=== PATIENT | male | born 1955 | race Caucasian/White ===

== ENCOUNTER 2022-06-18 17:22 | Inpatient (IN) | payer MEDICARE, SELFPAY ==
[2022-06-18] VITALS (21 sets, daily range): BP systolic 130–174; BP diastolic 79–96; PULSE 53–69; RESP 11–28; TEMP 36.4–36.6; O2SAT 95–100; BMI 35.4
--- NOTE | ~2022-06-18 | XR_ITS ---
EXAMINATION: XR chest 2V DATE: 06/18/2022 17:53 INDICATION: Chest pain. TECHNIQUE: Frontal and lateral views of the chest were obtained. COMPARISON: Chest 2 views 04/01/2019 FINDINGS: The chest demonstrates clear lungs without pneumonia, pleural effusion, or pneumothorax. Th e heart size is normal. IMPRESSION: 1. No acute cardiopulmonary disease. Reviewed, dictated and finalized at location A.
--- NOTE | 2022-06-18 17:24 | ECG_ITS ---
Measurements Intervals [place] Rate: 59 P: 32 VA: 192 QRS: -9 QRSD: 105 T: 0 QT: 407 QTc: 405 Interpretive Statements SINUS BRADYCARDIA CONSIDER INFERIOR INFARCT, AGE INDETERMINATE ABNORMAL ECG NO PREVIOUS ECG AVAILABLE FOR COMPARISON Electronically Signed On 06-18-2022 21:30:40 CDT by Toribio Leal D.O.
--- NOTE | 2022-06-18 17:59 | ED.CHESTPAIN ---
HPI - Chest Pain General Chief Complaint: Chest Pain Stated Complaint: chest pain Time Seen by Provider: 06/18/22 17:56 History of Present Illness HPI narrative: Patient is a 66-year-old male with a history of diabetes, hyperlipidemia, hypertension, GERD presenting with chest tightness. Patient states that he was cutting logs and using his chainsaw earlier today. States that while doing so he became short of breath but he thought it was because he has not done any outdoor work for a while. He then went inside and ate some food. Shortly after eating he developed substernal chest tightness. States that it is associated with belching. States that he checked his blood pressure at home and it was in the 150s over 90s which is much higher than it has been lately. States he was recently started on lisinopril and since then his blood pressures have been in the 110s to 120s. Patient states he has had chest tightness like this in the past and it was related to anxiety. He denies diaphoresis, lightheadedness, nausea or vomiting, palpitations. Denies headache, numbness or weakness, abdominal pain, diarrhea, leg swelling, back pain. Related Data Home Medications Medication Instructions Recorded Confirmed atorvastatin 40 mg tablet 40 mg PO DAILY 05/03/22 05/03/22 metformin 1,000 mg tablet 1,000 mg PO BID 05/03/22 05/03/22 metoprolol succinate 100 mg 100 mg PO BID 05/03/22 05/03/22 tablet,extended release 24 hr omeprazole 20 mg tablet,delayed 20 mg PO DAILY 05/03/22 05/03/22 release Allergies Allergy/AdvReac Type Severity Reaction Status Date / Time Sulfa (Sulfonamide Allergy Severe Hives Verified 06/18/22 18:21 Antibiotics) ibuprofen Allergy Unknown hives Verified 06/18/22 18:21 bacitracin [From Cortisporin] AdvReac Unknown Unknown Verified 06/18/22 18:21 hydrocodone AdvReac Unknown Unknown Verified 06/18/22 18:21 hydrocortisone AdvReac Unknown Unknown Verified 06/18/22 18:21 [From Cortisporin] neomycin [From Cortisporin] AdvReac Unknown Unknown Verified 06/18/22 18:21 polymyxin B AdvReac Unknown Unknown Verified 06/18/22 18:21 [From Cortisporin] Review of Systems Review of Systems: All systems reviewed & are unremarkable except as noted in HPI and below PMFSH Family History Family History Father Acute myocardial infarction Heart disease Hypertension Mother Acute myocardial infarction Diabetes mellitus Heart disease Hypertension Grandparent Acute myocardial infarction Heart disease Hypertension Grandparent Acute myocardial infarction Heart disease Sibling Asthma Diabetes mellitus Sibling Diabetes mellitus Social History Social History Smoking status: Never smoker Second hand tobacco smoke exposure: No Alcohol intake: current Alcohol use details: Occasionally Substance use: never Substance use type: does not use Gender identity (if verbalized by the patient): Male Sexual Orientation (if Verbalized by the Patient): Straight or Heterosexual Spiritual care concerns: No Agree to blood products: Yes Exam Narrative: GENERAL: Well-appearing, well-nourished, and in no acute distress. HEAD: Normocephalic, atraumatic. EYES: PERRLA and EOMI. ENT: Nares clear, no rhinorrhea or epistaxis. Mucous membranes moist. NECK: Supple. CHEST: Clear to auscultation. No respiratory distress. HEART: Regular rate and rhythm. No murmur heard. Normal peripheral pulses. ABDOMEN: Soft, nontender, nondistended, normal active bowel sounds. EXTREMITIES: Normal range of motion. No edema. SKIN: Warm, dry, no rash. NEURO: No focal deficits. Alert and oriented x3. PSYCH: Normal mood and affect. Course Vital Signs Vital signs: Vital Signs Temperature 97.9 F 06/18/22 17:31 Pulse Rate 58 L 06/18/22 17:31 Respiratory Rate 14 06/18/22 17:31 Blood Pressure 174/95 H 0
[2022-06-18] MEDS: BELLADONNA ALK/PHENOB ELIX 10 ML, MAG HYDROX/ALUMINUM HYD/SIMETH 30 ML, LIDOCAINE HCL 2... PO (18:22)
[2022-06-18 18:25] LABS: Basophils Absolute Auto 0.1 K/mm3 (0.0-0.1); Basophils Percent Auto 0.6 % (0.2-1.2); Eosinophils Absolute Auto 0.1 K/mm3 (0-0.3); Eosinophils Percent Auto 1.5 % (0-4.4); Hematocrit 44.8 % (42.0-52.0); Hemoglobin 14.9 g/dL (14.0-18.0); Immature Granulocyte Absolute 0.01 K/mm3 (0.00-0.031); Immature Granulocyte Percent A 0.1 % (0-0.5); Lymphocytes Absolute Auto 2.91 K/mm3 (0.9-3.2); Lymphocytes Percent Auto 36.3 % (18.3-44.2); Mean Corpuscular HGB Conc 33.3 g/dl (32-36); Mean Corpuscular Hemoglobin 29.7 pg (26-34); Mean Corpuscular Volume 89.4 fl (80-100); Mean Platelet Volume 10.5 fl (7.4-10.4); Monocytes Absolute Auto 0.8 K/mm3 (0.1-0.6); Neutrophils Absolute Auto 4.1 K/mm3 (1.3-6.7); Neutrophils Percent Auto 51.5 % (45.5-73.1); Platelet Count Result 227 k/mm3 (150-375); Red Blood Count 5.01 M/mm3 (4.6-6.20); Red Cell Distribution Width 12.9 % (11.5-14.5)
[2022-06-18 18:33] LABS: INR 0.9; Prothrombin Time 12.1 Seconds (11.1-14.7)
[2022-06-18 18:34] LABS: Alanine Aminotransferase 31 U/L (6-50); Albumin Level 4.5 g/dL (3.5-5.1); Alkaline Phosphatase 36 U/L (38-126); Anion Gap 10 mmol/L (8-16); Aspartate Amino Transferase 30 U/L (17-59); Bilirubin,Total 0.6 mg/dL (0.2-1.3); Blood Urea Nitrogen 17 mg/dL (9-20); Carbon Dioxide 30 mmol/L (22-30); Chloride 99 mmol/L (98-107); Estimated CRCL calculation 77 ml/min; Estimated Glomerular Filt Rate > 60; Glucose 160 mg/dL (65-110); Lipase 158 U/L (23-300); Partial Thromboplastin Time 29.9 SECONDS (22.3-36.8); Potassium 4.3 mmol/L (3.4-5.0); Sodium 139 mmol/L (137-145)
[2022-06-18 18:46] LABS: Troponin I < 0.012 ng/mL (0.000-0.034)
[2022-06-18 21:06] LABS: Troponin I 0.024 ng/mL (0.000-0.034)
[2022-06-18] MEDS: ASPIRIN 81 MG CHEWABLE TABLET 324 MG PO (21:28)
[2022-06-18 22:24] LABS: SARS-CoV-2 RNA PCR Negative
--- NOTE | 2022-06-18 23:28 | PM.IMHP ---
H&P: HPI History of Present Illness Date/Time: 06/18/22 22:10 Chief Complaint: Chest pain Narrative: 66-year-old male with past medical history of hypertension, hyperlipidemia, GERD and type 2 diabetes mellitus who presented to the ER with chest pain. The patient reports that for the last several days he has been having intermittent substernal chest pain that is pressure-like in nature. The pain is associated with belching. The pain is improved after belching. The pain was completely relieved in the ER after he received a GI cocktail. He also received a full-dose aspirin on arrival to the ER. He denies any nausea or vomiting. He has been having some associated shortness of breath. He has not had any cough or congestion. He states that he has been cutting firewood with a chain saw. He reports that when the pain occurs it usually takes about 30 minutes for it to resolve. He denies any orthopnea, lower extremity swelling or paroxysmal nocturnal dyspnea. He has not had any cough or congestion. He denies any fevers or chills. He has not had any nausea or vomiting. He denies any radiation of the chest pain. Patient reported that when he began having symptoms tonight he checked his blood pressure in his blood pressure was elevated to 158/97. He reports that when he started on lisinopril in May his blood pressures came down into the 110's/70's and have been well controlled until today. He works out with water aerobics for 5 days a week and does not usually have shortness of breath or pain with these activities. However, he states he may have had some pressure in his chest when exercising yesterday. He reports that his symptoms started on the . He has a yearly treadmill stress test as outpatient that is always been normal. He is scheduled to have a repeat treadmill stress test next month. Review of Systems Review of Systems: 12 systems were reviewed with pertinent positives and negatives per HPI. Except as documented in the HPI, all other systems were reviewed and are negative. [facility], LAT[facility] Past Medical History Medical History (Updated 06/19/22 @ 00:04 by Alta Bradford DO) Essential hypertension Gastro-esophageal reflux disease without esophagitis Mixed hyperlipidemia Surgical History Surgical History (Updated 06/18/22 @ 23:43 by Alta Bradford DO) History of tonsillectomy and adenoidectomy Family History Family History Father Acute myocardial infarction, Onset Age: 79 Heart disease Hypertension Mother Acute myocardial infarction, Onset Age: 66 Diabetes mellitus Heart disease Hypertension Grandparent Acute myocardial infarction Heart disease Hypertension Grandparent Acute myocardial infarction Heart disease Sibling Asthma Diabetes mellitus Sibling Diabetes mellitus Social History Social History (Updated 06/18/22 @ 23:45 by Alta Bradford DO) Social History: He has been for 33 years. He has 1 biological child and 3 stepchildren. He is a lifelong nonsmoker and drinks a glass a wine about 3 times a week. He denies any illicit substance use. He is a retired construction scheduler. Code status: Full code Surrogate decision maker: Smoking status: Never smoker Second hand tobacco smoke exposure: No Alcohol intake: current Alcohol use details: Occasionally Substance use: never Substance use type: does not use Gender identity (if verbalized by the patient): Male Sexual Orientation (if Verbalized by the Patient): Straight or Heterosexual Spiritual care concerns: No Agree to blood products: Yes Meds Home Medications and Allergies Home Medications Medication Instructions Recorded Confirmed Type atorvastatin 40 mg tablet 40 mg PO DAILY 05/03/22 06/18/22 History lisinopril 20 mg tablet 20 mg PO DAILY #90 tabs 05/03/22 06/18/22 Rx metformin 1,000 mg tablet 1,000 mg PO BID 08
[2022-06-19] VITALS (16 sets, daily range): BP systolic 123–141; BP diastolic 69–92; PULSE 48–82; RESP 18–20; TEMP 36.3–36.6; O2SAT 96–100; BMI 35.4
--- NOTE | 2022-06-19 00:28 | ADMGEN ---
This patient, Chris Oden Jr., was admitted to IMU Room 212-01. Patient/family oriented to hospital policies and general routines including ID bracelet, bed and alarms, visiting hours, pain management, procedures, bathroom and other care routines, personal items, smoking policy, room service/diet, and visiting hours. Information on how to activate the Rapid Response Team has been discussed. Patient/Family are encouraged to report perceived risks to care and to ask questions if they do not understand what they are told or what they should do.
[2022-06-19] MEDS: ENOXAPARIN 120 MG/0.8 ML SYRINGE 110 MG SUB-Q ×3 (01:45→20:46)
--- NOTE | 2022-06-19 05:00 | ECG_ITS ---
Measurements Intervals [place] Rate: 47 P: 32 MN: 186 QRS: 13 QRSD: 108 T: 58 QT: 439 QTc: 392 Interpretive Statements SINUS BRADYCARDIA ABNORMAL ECG COMPARED TO ECG 04/02/2019 00:40:23 HR HAS DECREASED Electronically Signed On 06-19-2022 10:07:01 CDT by Toribio Leal D.O.
[2022-06-19 05:27] LABS: Glucose Point of Care 152 mg/dl (65-105)
[2022-06-19 07:50] LABS: Glucose Point of Care 148 mg/dl (65-105)
--- NOTE | 2022-06-19 08:49 | PM.CNCAR ---
Assessment and Plan Assessment and plan (1) Chest pain: Code(s): R07.9 - Chest pain, unspecified Status: Acute Plan This is a 66-year-old man with hypertension and dyslipidemia who presents with intermittent chest pain. Setting of this pain is rather atypical for ischemia however the quality of the pain is concerning and he has had a modest troponin rise following admission. In this setting he should undergo a coronary angiogram. As he is stable this will be scheduled for Tuesday. Through the weekend I will keep him on guideline directed medical therapy including subcutaneous Lovenox. John Arita MD [facility] History of Present Illness History of Present Illness Consult date/time: 06/19/22 08:49 Reason For Visit: chest pain Narrative: This is a pleasant 66-year-old man with a history of hypertension who I am seeing at the request of the hospitalist with chest pain and evidence of acute coronary syndrome. He states that he has been having episodes of chest pain off and on for a couple of weeks. The symptom seems to be a low substernal pressure-like sensation that comes and goes in a nonexertional fashion. He noticed that the symptom seems to dissipate if he belches. He has not noticed that this to be an exertional symptom. Because of ongoing symptoms he finally came into the emergency room last evening as he had an episode that was a bit more persistent yesterday evening. His presentation EKG in the emergency room was normal and has remained so. He had a series of 4 troponin levels done following admission which have shown a modest rise from normal up to 0.9. He has been asymptomatic with no recurrences of this chest pain. I was notified in the middle of the night of his troponin levels and requested to see him in consultation today. 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 He does not have any sense of palpitations orthopnea PND or edema he has not suffered a syncopal episode. He states that because of his risk factors and family history his physician does perform stress tests on him occasionally which have been consistently negative. In addition to his hypertension and dyslipidemia both parents had coronary artery disease his mother having of a myocardial infarction in her 60s. Review of Systems Constitutional: Constitutional: Reports no additional constitutional complaints Eyes: Eyes: Reports no additional eye complaints ENT: Reports system reviewed and no additional complaints, except as documented Cardiovascular: Cardiovascular: Reports as per HPI Respiratory: Respiratory: Reports no additional respiratory complaints Gastrointestinal: Gastrointestinal: Reports no additional gastrointestinal complaints Musculoskeletal: Musculoskeletal: Reports no additional musculoskeletal complaints Integumentary/Breasts: Skin/Breast: Reports system reviewed and no additional complaints, except as docu Neurologic: Reports system reviewed and no additional complaints, except as documented Endocrine: Endocrine: Reports no additional endocrine complaints Hematologic/Lymphatic: Hematologic/Lymphatic: Reports no additional hematologic/lymphatic complaints Allergic/Immunologic: Allergic/Immunologic: Reports no additional allergic/immunologic complaints [facility] Past Medical History Medical History (Updated 06/19/22 @ 00:04 by Alta Bradford DO) Essential hypertension Gastro-esophageal reflux disease without esophagitis Mixed hyperlipidemia Surgical History Surgical History (Updated 06/18/22 @ 23:43 by Alta Bradford DO) History of tonsillectomy and adenoidectomy Family History Family History Father Acute myocardial infarction, Onset Age: 79 Heart disease Hypertension Mother Acute myocardial infarction, Onset Age: 66
--- NOTE | 2022-06-19 09:00 | PM.IMPN ---
Progress Note: A&P Assessment and Plan (1) Chest pain: Code(s): R07.9 - Chest pain, unspecified Status: Acute Assessment and Plan: With elevated troponin, appreciate Cardiology consultation, heart catheterization planned for Tuesday Monitor telemetry, trend troponins, continue aspirin, Lipitor, therapeutic Lovenox, metoprolol (2) Gastro-esophageal reflux disease without esophagitis: Code(s): K21.9 - Gastro-esophageal reflux disease without esophagitis Status: Acute Assessment and Plan: Continue PPI (3) Essential (primary) hypertension: Code(s): I10 - Essential (primary) hypertension Status: Acute Assessment and Plan: Controlled (4) Mixed hyperlipidemia: Code(s): E78.2 - Mixed hyperlipidemia Status: Acute Assessment and Plan: Continue statin (5) Type 2 diabetes mellitus without complications: Qualifiers: Diabetes mellitus prison insulin use: without prison use Qualified Code(s): E11.9 - Type 2 diabetes mellitus without complications Code(s): E11.9 - Type 2 diabetes mellitus without complications Status: Acute Assessment and Plan: Hold metformin, A1c was 6.3 last month, Accu-Cheks and sliding scale insulin ordered Plan DVT prophylaxis with Lovenox GI prophylaxis not indicated Code status full code Subjective Date/time seen: 06/19/22 09:00 Interval history: No overnight events noted. No chest pain or shortness of breath. No nausea, vomiting or diarrhea. No fevers or chills. Review of Systems Review of Systems: 12 point review of systems was assessed and was negative except as noted in the HPI Exam Narrative: General: No acute distress, alert and oriented per baseline HEENT: Atraumatic, normocephalic, mucous membranes moist CV: Regular rate and rhythm, S1, S2 Lungs: Clear to auscultation bilaterally, no rales or crackles noted, no wheezes, good air entry Abdomen: Soft, nontender, nondistended Extremities: Normal to inspection Skin: No rashes noted, no lesions or wounds seen Psych: Euthymic, normal affect Objective Data Vital Signs Vital Signs: Vital Signs - 24 hr 06/18/22 17:31 06/18/22 18:00 06/18/22 18:32 Temperature 97.9 F Pulse Rate 58 L 58 L 66 Respiratory Rate 14 28 H Blood Pressure 174/95 H 153/96 H Pulse Oximetry 100 100 Oxygen Delivery Room Air 06/18/22 19:02 06/18/22 19:03 06/18/22 19:24 Temperature Pulse Rate 60 58 L 61 Respiratory Rate 13 11 L 15 Blood Pressure 160/82 H Pulse Oximetry 97 98 96 Oxygen Delivery 06/18/22 19:30 06/18/22 19:45 06/18/22 20:13 Temperature Pulse Rate 62 61 56 L Respiratory Rate 16 12 18 Blood Pressure Pulse Oximetry 97 96 96 Oxygen Delivery 06/18/22 20:15 06/18/22 20:16 06/18/22 20:18 Temperature Pulse Rate 61 58 L 69 Respiratory Rate 18 21 H 16 Blood Pressure 147/79 H 143/86 H Pulse Oximetry 95 96 97 Oxygen Delivery 06/18/22 20:31 06/18/22 20:32 06/18/22 20:45 Temperature Pulse Rate 61 60 60 Respiratory Rate 13 13 17 Blood Pressure 130/94 H Pulse Oximetry 95 97 96 Oxygen Delivery 06/18/22 20:46 06/18/22 21:07 06/18/22 21:15 Temperature Pulse Rate 53 L 65 54 L Respiratory Rate 16 11 L 16 Blood Pressure 134/80 Pulse Oximetry 96 98 98 Oxygen Delivery 06/18/22 21:16 06/18/22 21:30 06/18/22 23:31 Temperature 97.6 F Pulse Rate 53 L 55 L 56 L Respiratory Rate 12 17 20 Blood Pressure 146/89 H 143/79 H Pulse Oximetry 99 99 98 Oxygen Delivery 06/19/22 00:00 06/18/22 23:50 06/19/22 03:42 Temperature Pulse Rate 48 L Respiratory Rate Blood Pressure Pulse Oximetry Oxygen Delivery Room Air Room Air 06/19/22 04:00 06/19/22 04:00 06/19/22 02:00 Temperature 97.4 F L Pulse Rate 57 L 48 L 49 L Respiratory Rate 20 Blood Pressure 136/69 Pulse Oximetry 100 Oxygen Delivery 06/19/22 05:42 06/19/22 07:57
[2022-06-19] MEDS: ASPIRIN 81 MG ENTERIC TABLET PO (09:11)
[2022-06-19] MEDS: lisinopriL 20 MG TABLET PO (09:12)
[2022-06-19] MEDS: METOPROLOL SUCCINATE EXT REL 100 MG TABCR PO ×2 (09:12→18:20)
[2022-06-19] MEDS: PANTOPRAZOLE 40 MG TABLET PO ×2 (09:12→20:41)
[2022-06-19] MEDS: ATORVASTATIN 40 MG TABLET PO (09:12)
[2022-06-19 11:07] LABS: Basophils Percent Auto 0.5 % (0.2-1.2); Eosinophils Absolute Auto 0.2 K/mm3 (0-0.3); Hematocrit 40.3 % (42.0-52.0); Hemoglobin 12.9 g/dL (14.0-18.0); Immature Granulocyte Absolute 0.01 K/mm3 (0.00-0.031); Immature Granulocyte Percent A 0.1 % (0-0.5); Lymphocytes Absolute Auto 3.04 K/mm3 (0.9-3.2); Lymphocytes Percent Auto 37.6 % (18.3-44.2); Mean Corpuscular Hemoglobin 29.2 pg (26-34); Mean Corpuscular Volume 91.2 fl (80-100); Mean Platelet Volume 11.6 fl (7.4-10.4); Monocytes Absolute Auto 0.7 K/mm3 (0.1-0.6); Monocytes Percent Auto 9.2 % (2.6-8.5); Neutrophils Absolute Auto 4.1 K/mm3 (1.3-6.7); Neutrophils Percent Auto 50.6 % (45.5-73.1); Platelet Count Result 206 k/mm3 (150-375); Red Blood Count 4.42 M/mm3 (4.6-6.20); Red Cell Distribution Width 13.2 % (11.5-14.5); White Blood Count 8.1 K/mm3 (4.5-10.0)
[2022-06-19 11:21] LABS: Anion Gap 12 mmol/L (8-16); Blood Urea Nitrogen 16 mg/dL (9-20); Calcium 8.9 mg/dL (8.4-10.2); Carbon Dioxide 27 mmol/L (22-30); Chloride 100 mmol/L (98-107); Estimated CRCL calculation 75 ml/min; Estimated Glomerular Filt Rate > 60; Glucose 139 mg/dL (65-110); Potassium 3.8 mmol/L (3.4-5.0); Sodium 139 mmol/L (137-145)
[2022-06-19 12:02] LABS: Glucose Point of Care 309 mg/dl (65-105)
[2022-06-19] MEDS: INSULIN ASPART (*BKC) 100 UNITS/ML SUB-Q (12:37)
[2022-06-19 17:05] LABS: Glucose Point of Care 126 mg/dl (65-105)
[2022-06-19 19:59] LABS: Glucose Point of Care 309 mg/dl (65-105)
[2022-06-20] VITALS (17 sets, daily range): BP systolic 118–137; BP diastolic 70–83; PULSE 51–76; RESP 12–20; TEMP 36.2–36.9; O2SAT 94–100
--- NOTE | 2022-06-20 02:52 | ECG_ITS ---
Measurements Intervals [place] Rate: 59 P: 32 CT: 200 QRS: 6 QRSD: 98 T: 70 QT: 410 QTc: 408 Interpretive Statements SINUS BRADYCARDIA CANNOT RULE OUT SEPTAL INFARCT, AGE INDETERMINATE BASELINE ARTIFACT- I, II, AVR ABNORMAL ECG COMPARED TO ECG 06/19/2022 04:21:30 HEART RATE HAS INCREASED CANNOT RULE OUT SEPTAL INFARCT, AGE INDETERMINATE NOW PRESENT Electronically Signed On 06-20-2022 8:02:32 CDT by Toribio Leal D.O.
[2022-06-20] MEDS: CALCIUM CARBONATE (TUMS) 500 MG (200 MG ELEMENTAL) PO (03:00)
[2022-06-20 05:30] LABS: Basophils Absolute Auto 0.1 K/mm3 (0.0-0.1); Basophils Percent Auto 0.7 % (0.2-1.2); Eosinophils Absolute Auto 0.2 K/mm3 (0-0.3); Eosinophils Percent Auto 2.3 % (0-4.4); Hematocrit 45.1 % (42.0-52.0); Hemoglobin 14.6 g/dL (14.0-18.0); Immature Granulocyte Absolute 0.03 K/mm3 (0.00-0.031); Immature Granulocyte Percent A 0.3 % (0-0.5); Lymphocytes Percent Auto 31.5 % (18.3-44.2); Mean Corpuscular HGB Conc 32.4 g/dl (32-36); Mean Corpuscular Hemoglobin 29.4 pg (26-34); Mean Corpuscular Volume 90.7 fl (80-100); Mean Platelet Volume 11.8 fl (7.4-10.4); Monocytes Absolute Auto 0.8 K/mm3 (0.1-0.6); Neutrophils Percent Auto 56.2 % (45.5-73.1); Platelet Count Result 184 k/mm3 (150-375); Red Blood Count 4.97 M/mm3 (4.6-6.20); White Blood Count 8.9 K/mm3 (4.5-10.0)
[2022-06-20 06:01] LABS: Alanine Aminotransferase 28 U/L (6-50); Albumin Level 4.3 g/dL (3.5-5.1); Alkaline Phosphatase 30 U/L (38-126); Anion Gap 13 mmol/L (8-16); Aspartate Amino Transferase 37 U/L (17-59); Bilirubin,Total 0.8 mg/dL (0.2-1.3); Blood Urea Nitrogen 13 mg/dL (9-20); Carbon Dioxide 24 mmol/L (22-30); Chloride 102 mmol/L (98-107); Estimated CRCL calculation 82 ml/min; Estimated Glomerular Filt Rate > 60; Glucose 158 mg/dL (65-110); Potassium 3.8 mmol/L (3.4-5.0); Sodium 139 mmol/L (137-145)
--- NOTE | 2022-06-20 07:30 | PM.PNCARD ---
Progress Note: A&P Assessment and Plan (1) Chest pain: Code(s): R07.9 - Chest pain, unspecified Status: Acute Plan 66-year-old man with hypertension non insulin-dependent diabetes and dyslipidemia presenting with symptoms compatible with acute coronary syndrome. He is stable clinically. He did have an episode of some self-limited chest discomfort in the middle of the night as mentioned above. Plans are to proceed with coronary angiography tomorrow. Will keep him on Lovenox until then. John Arita MD [facility] Subjective Date/time seen: Date of service: 06/20/22 07:30 Interval history: Follow-up visit in this 66-year-old man with: Evidence of acute coronary syndrome. Patient on guideline directed medical therapy and anticoagulated with Lovenox. He is comfortable this morning and offers no complaints. Apparently had an episode of some chest pressure at 2:00 a.m. in the morning that lasted for 15 or 20 minutes. ECG at that time looked benign. Exam Const: General: comfortable and no acute distress Other: Pleasant gentleman sleeping comfortably when I entered the room upon awakening feels well has no complaints. Questions answered about tomorrow's plans for angiography. HENMT: Mouth: Yes moist mucous membranes Eyes: Sclera: sclerae normal Pupils: Equal, round and reactive pupils present Neck: Neck: supple and no JVD Other: No carotid bruits Resp: Effort & Inspection: normal respiratory effort Auscultation: clear to auscultation bilaterally Cardio: Rate: regular rate Rhythm: regular rhythm GI: GI Palp: Yes Soft to palpation Auscultation: normal bowel sounds Skin: General skin exam: normal color Neuro: Other: Alert and oriented Extrem: General: normal to inspection Objective Data Vital Signs Vital Signs: Vital Signs - 24 hr 06/19/22 07:57 06/19/22 08:00 06/19/22 08:00 Temperature 36.6 C Pulse Rate 57 L 61 Respiratory Rate 20 Blood Pressure 123/78 Pulse Oximetry 98 Oxygen Delivery Room Air 06/19/22 10:00 06/19/22 12:15 06/19/22 12:00 Temperature 36.4 C Pulse Rate 69 68 82 Respiratory Rate 20 Blood Pressure 129/77 Pulse Oximetry 98 Oxygen Delivery 06/19/22 12:00 06/19/22 14:00 06/19/22 16:00 Temperature Pulse Rate 74 Respiratory Rate Blood Pressure Pulse Oximetry Oxygen Delivery Room Air Room Air 06/19/22 16:00 06/19/22 17:09 06/19/22 18:00 Temperature 36.6 C Pulse Rate 72 70 79 Respiratory Rate 18 Blood Pressure 141/92 H Pulse Oximetry 98 Oxygen Delivery 06/19/22 20:00 06/19/22 23:38 06/19/22 20:00 Temperature 36.3 C L 36.4 C L Pulse Rate 73 53 L 73 Respiratory Rate 20 20 20 Blood Pressure 132/82 136/80 Pulse Oximetry 96 97 96 Oxygen Delivery Room Air 06/20/22 00:00 06/19/22 20:00 06/19/22 22:00 Temperature Pulse Rate 53 L 71 56 L Respiratory Rate 20 Blood Pressure Pulse Oximetry 97 Oxygen Delivery Room Air 06/20/22 00:00 06/20/22 01:52 06/20/22 03:19 Temperature Pulse Rate 62 51 L 57 L Respiratory Rate 18 Blood Pressure Pulse Oximetry 97 Oxygen Delivery Room Air 06/20/22 03:19 06/20/22 04:00 06/20/22 05:41 Temperature 36.2 C L Pulse Rate 57 L 53 L 58 L Respiratory Rate 18 Blood Pressure 137/82 Pulse Oximetry 97 Oxygen Delivery Intake/Output Intake/Output: Intake & Output 06/17/22 06/18/22 06/19/22 06/20/22 23:59 23:59 23:59 23:59 Intake Total 1270 Output Total 1475 700 Balance -205 -700 Meds/Results Medications: Active Medications Generic Name Dose Route Start Last Admin Trade Name Bisi PRN Reason Stop Dose Admin Aspirin 81 mg 06/19/22 09:00 06/19/22 09:11 Aspirin 81 Mg Enteric Tablet PO 81 mg QAM SHERRY Administration Atorvastatin Calcium 40 mg 06/19/22 09:00 06/19/22 09:12 Atorvastatin 40 Mg Tablet PO 40 mg DAILY SHERRY Administration Calcium Carbonate 200 mg 06/19/22 1
[2022-06-20 07:59] LABS: Glucose Point of Care 190 mg/dl (65-105)
[2022-06-20] MEDS: ATORVASTATIN 40 MG TABLET PO (09:23)
[2022-06-20] MEDS: ASPIRIN 81 MG ENTERIC TABLET PO (09:23)
[2022-06-20] MEDS: lisinopriL 20 MG TABLET PO (09:23)
[2022-06-20] MEDS: PANTOPRAZOLE 40 MG TABLET PO ×2 (09:23→20:35)
[2022-06-20] MEDS: METOPROLOL SUCCINATE EXT REL 100 MG TABCR PO ×2 (09:23→18:23)
[2022-06-20] MEDS: ENOXAPARIN 120 MG/0.8 ML SYRINGE 110 MG SUB-Q ×2 (09:24→20:35)
[2022-06-20 12:06] LABS: Glucose Point of Care 185 mg/dl (65-105)
--- NOTE | 2022-06-20 16:52 | PM.IMPN ---
Progress Note: A&P Assessment and Plan (1) Chest pain: Code(s): R07.9 - Chest pain, unspecified Status: Acute Assessment and Plan: With elevated troponin, appreciate Cardiology consultation, heart catheterization planned for Tuesday Monitor telemetry, trend troponins, continue aspirin, Lipitor, therapeutic Lovenox, metoprolol (2) Gastro-esophageal reflux disease without esophagitis: Code(s): K21.9 - Gastro-esophageal reflux disease without esophagitis Status: Acute Assessment and Plan: Continue PPI Suspect indigestion contributing to some of patient's symptoms, will need EGD/colonoscopy at discharge (3) Essential (primary) hypertension: Code(s): I10 - Essential (primary) hypertension Status: Acute Assessment and Plan: Controlled (4) Mixed hyperlipidemia: Code(s): E78.2 - Mixed hyperlipidemia Status: Acute Assessment and Plan: Continue statin (5) Type 2 diabetes mellitus without complications: Qualifiers: Diabetes mellitus group home insulin use: without group home use Qualified Code(s): E11.9 - Type 2 diabetes mellitus without complications Code(s): E11.9 - Type 2 diabetes mellitus without complications Status: Acute Assessment and Plan: Hold metformin, A1c was 6.3 last month, Accu-Cheks and sliding scale insulin ordered Plan DVT prophylaxis with Lovenox GI prophylaxis not indicated Code status full code Subjective Date/time seen: 06/20/22 16:52 Exam Narrative: General: No acute distress, alert and oriented per baseline HEENT: Atraumatic, normocephalic, mucous membranes moist CV: Regular rate and rhythm, S1, S2 Lungs: Clear to auscultation bilaterally, no rales or crackles noted, no wheezes, good air entry Abdomen: Soft, nontender, nondistended Extremities: Normal to inspection Skin: No rashes noted, no lesions or wounds seen Psych: Euthymic, normal affect Objective Data Vital Signs Vital Signs: Vital Signs - 24 hr 06/19/22 17:09 06/19/22 18:00 06/19/22 20:00 Temperature 97.9 F 97.4 F L Pulse Rate 70 79 73 Respiratory Rate 18 20 Blood Pressure 141/92 H 132/82 Pulse Oximetry 98 96 Oxygen Delivery 06/19/22 23:38 06/19/22 20:00 06/20/22 00:00 Temperature 97.5 F L Pulse Rate 53 L 73 53 L Respiratory Rate 20 20 20 Blood Pressure 136/80 Pulse Oximetry 97 96 97 Oxygen Delivery Room Air Room Air 06/19/22 20:00 06/19/22 22:00 06/20/22 00:00 Temperature Pulse Rate 71 56 L 62 Respiratory Rate Blood Pressure Pulse Oximetry Oxygen Delivery 06/20/22 01:52 06/20/22 03:19 06/20/22 03:19 Temperature 97.1 F L Pulse Rate 51 L 57 L 57 L Respiratory Rate 18 18 Blood Pressure 137/82 Pulse Oximetry 97 97 Oxygen Delivery Room Air 06/20/22 04:00 06/20/22 05:41 06/20/22 08:00 Temperature 97.3 F L Pulse Rate 53 L 58 L 63 Respiratory Rate 16 Blood Pressure 132/82 Pulse Oximetry 94 Oxygen Delivery 06/20/22 09:23 06/20/22 11:04 06/20/22 12:00 Temperature 98.4 F Pulse Rate 75 58 L Respiratory Rate 12 Blood Pressure 127/78 Pulse Oximetry 95 95 Oxygen Delivery Room Air 06/20/22 08:00 06/20/22 10:00 06/20/22 12:00 Temperature Pulse Rate 60 73 60 Respiratory Rate Blood Pressure Pulse Oximetry Oxygen Delivery 06/20/22 14:00 06/20/22 08:00 06/20/22 12:00 Temperature Pulse Rate 71 Respiratory Rate Blood Pressure Pulse Oximetry 95 95 Oxygen Delivery Room Air Room Air 06/20/22 16:00 06/20/22 16:00 Temperature Pulse Rate 53 L Respiratory Rate Blood Pressure Pulse Oximetry 95 Oxygen Delivery Room Air Intake/Output Intake/Output: Intake & Output 06/17/22 06/18/22 06/19/22 06/20/22 23:59 23:59 23:59 23:59 Intake Total 1270 240 Output Total 1475 700 Balance -205 -043 Meds/Results Medications: Active Medications Generic Name Dose Route Start La
[2022-06-20 16:53] LABS: Glucose Point of Care 170 mg/dl (65-105)
[2022-06-20 20:04] LABS: Glucose Point of Care 215 mg/dl (65-105)
[2022-06-21] VITALS (27 sets, daily range): BP systolic 118–149; BP diastolic 69–99; PULSE 52–76; RESP 11–20; TEMP 36.3–37; O2SAT 95–99
[2022-06-21 05:33] LABS: Basophils Absolute Auto 0.1 K/mm3 (0.0-0.1); Basophils Percent Auto 0.7 % (0.2-1.2); Eosinophils Absolute Auto 0.2 K/mm3 (0-0.3); Eosinophils Percent Auto 2.5 % (0-4.4); Hematocrit 43.5 % (42.0-52.0); Hemoglobin 14.1 g/dL (14.0-18.0); Immature Granulocyte Absolute 0.02 K/mm3 (0.00-0.031); Immature Granulocyte Percent A 0.2 % (0-0.5); Lymphocytes Absolute Auto 2.71 K/mm3 (0.9-3.2); Lymphocytes Percent Auto 33.5 % (18.3-44.2); Mean Corpuscular HGB Conc 32.4 g/dl (32-36); Mean Corpuscular Hemoglobin 29.7 pg (26-34); Mean Corpuscular Volume 91.6 fl (80-100); Mean Platelet Volume 11.1 fl (7.4-10.4); Monocytes Absolute Auto 0.9 K/mm3 (0.1-0.6); Monocytes Percent Auto 10.9 % (2.6-8.5); Neutrophils Absolute Auto 4.2 K/mm3 (1.3-6.7); Neutrophils Percent Auto 52.2 % (45.5-73.1); Platelet Count Result 166 k/mm3 (150-375); Red Blood Count 4.75 M/mm3 (4.6-6.20); Red Cell Distribution Width 13.1 % (11.5-14.5); White Blood Count 8.1 K/mm3 (4.5-10.0)
[2022-06-21 06:02] LABS: Alanine Aminotransferase 27 U/L (6-50); Albumin Level 3.9 g/dL (3.5-5.1); Alkaline Phosphatase 35 U/L (38-126); Anion Gap 11 mmol/L (8-16); Aspartate Amino Transferase 32 U/L (17-59); Bilirubin,Total 0.7 mg/dL (0.2-1.3); Blood Urea Nitrogen 14 mg/dL (9-20); Carbon Dioxide 24 mmol/L (22-30); Chloride 103 mmol/L (98-107); Estimated CRCL calculation 90 ml/min; Estimated Glomerular Filt Rate > 60; Glucose 151 mg/dL (65-110); Potassium 3.7 mmol/L (3.4-5.0); Sodium 138 mmol/L (137-145)
[2022-06-21 08:20] LABS: Glucose Point of Care 158 mg/dl (65-105)
[2022-06-21] MEDS: ASPIRIN 81 MG ENTERIC TABLET PO (08:34)
[2022-06-21] MEDS: ATORVASTATIN 40 MG TABLET PO (08:34)
[2022-06-21] MEDS: METOPROLOL SUCCINATE EXT REL 100 MG TABCR PO ×2 (08:34→16:37)
[2022-06-21] MEDS: PANTOPRAZOLE 40 MG TABLET PO ×2 (08:34→21:13)
[2022-06-21] MEDS: lisinopriL 20 MG TABLET PO (08:34)
--- NOTE | 2022-06-21 11:00 | WPDMODSED ---
Moderate Sedation Note-Pt Data Patient Data Diagnosis: acute coronary syndrome Present Complaint: intermittent chest Procedure to be performed/Plan: left heart catheterization Allergies Allergy/AdvReac Type Severity Reaction Status Date / Time Sulfa (Sulfonamide Allergy Severe Hives Verified 06/18/22 18:21 Antibiotics) ibuprofen Allergy Unknown hives Verified 06/18/22 18:21 bacitracin [From Cortisporin] AdvReac Unknown Unknown Verified 06/18/22 18:21 hydrocodone AdvReac Unknown Unknown Verified 06/18/22 18:21 hydrocortisone AdvReac Unknown Unknown Verified 06/18/22 18:21 [From Cortisporin] neomycin [From Cortisporin] AdvReac Unknown Unknown Verified 06/18/22 18:21 polymyxin B AdvReac Unknown Unknown Verified 06/18/22 18:21 [From Cortisporin] Home Medications Medication Instructions Recorded Confirmed Type atorvastatin 40 mg tablet 40 mg PO DAILY 05/03/22 06/19/22 History lisinopril 20 mg tablet 20 mg PO DAILY #90 tabs 05/03/22 06/18/22 Rx metformin 1,000 mg tablet 1,000 mg PO BID 05/03/22 06/18/22 History metoprolol succinate 100 mg 100 mg PO BID 05/03/22 06/18/22 History tablet,extended release 24 hr omeprazole 20 mg tablet,delayed 20 mg PO DAILY 05/03/22 06/18/22 History release Current Medications: Active Medications Aspirin (Aspirin 81 Mg Enteric Tablet) 81 mg PO QAM [facility] Last Admin: 06/21/22 08:34 Dose: 81 mg Atorvastatin Calcium (Atorvastatin 40 Mg Tablet) 40 mg PO DAILY [facility] Last Admin: 06/21/22 08:34 Dose: 40 mg Calcium Carbonate (Calcium Carbonate (Tums) 500 Mg (200 Mg Elemental)) 200 mg PO Q6H PRN PRN Reason: Indigestion Last Admin: 06/20/22 03:00 Dose: 200 mg Dextrose (Dextrose 50% 25 Gm/50 Ml Syringe) 12.5 gm IV PUSH PRN PRN; Protocol PRN Reason: Hypoglycemia Enoxaparin Sodium (Enoxaparin 120 Mg/0.8 Ml Syringe) 110 mg SUB-Q Q12HR [facility] Last Admin: 06/21/22 07:49 Dose: Not Given Glucagon (Glucagon For Inj 1 Mg Vial) 1 mg IM PRN PRN; Protocol PRN Reason: Hypoglycemia Glucose (Glucose Oral Gel 15 Gm Of Glucse In 37.5 Gm Tube) 15 gm PO PRN PRN; Protocol PRN Reason: Hypoglycemia Dextrose (Dextrose 5% 1,000 Ml) 1,000 mls @ 100 mls/hr IVPB PRN PRN; Protocol PRN Reason: Hypoglycemia Sodium Chloride (Normal Saline Iv) 500 mls @ 100 mls/hr IV CONT .Q5H SHERRY Insulin Aspart (Insulin Aspart (*Bkc) 100 Units/Ml) 2 - 5 units SUB-Q TIDWM SHERRY; Protocol Last Admin: 06/21/22 08:33 Dose: Not Given Lisinopril (Lisinopril 20 Mg Tablet) 20 mg PO DAILY [facility] Last Admin: 06/21/22 08:34 Dose: 20 mg Metoprolol Succinate (Metoprolol Succinate Ext Rel 100 Mg Tabcr) 100 mg PO BID [facility] Last Admin: 06/21/22 08:34 Dose: 100 mg Pantoprazole Sodium (Pantoprazole 40 Mg Tablet) 40 mg PO Q12HR [facility] Last Admin: 06/21/22 08:34 Dose: 40 mg Sedation/Anesthesia: No previous sedation/anesthesia problems (including family history). [facility] Past Medical History Medical History (Updated 06/19/22 @ 00:04 by Alta Bradford DO) Essential hypertension Gastro-esophageal reflux disease without esophagitis Mixed hyperlipidemia Surgical History Surgical History (Updated 06/18/22 @ 23:43 by Alta Bradford DO) History of tonsillectomy and adenoidectomy Family History Family History Father Acute myocardial infarction, Onset Age: 79 Heart disease Hypertension Mother Acute myocardial infarction, Onset Age: 66 Diabetes mellitus Heart disease Hypertension Grandparent Acute myocardial infarction Heart disease Hypertension Grandparent Acute myocardial infarction Heart disease Sibling Asthma Diabetes mellitus Sibling Diabetes mellitus Social History Social History (Updated 06/18/22 @ 23:45 by Alta Bradford DO) Social History: He has been for 33 years. He has 1 biological child and 3 stepchildren. He is a lifelong nonsmoker and drinks a glass a wine about 3 times a week. He denie
[2022-06-21] MEDS: SODIUM CHLORIDE 0.9% IV 500 ML 100 ML IV CONT (11:45)
--- NOTE | 2022-06-21 12:37 | ECG_ITS ---
Measurements Intervals [place] Rate: 60 P: 47 HI: 188 QRS: 39 QRSD: 100 T: 101 QT: 403 QTc: 403 Interpretive Statements SINUS RHYTHM BORDERLINE T WAVE ABNORMALITY- HIGH LATERAL LEADS BASELINE ARTIFACT- V5-V6 BORDERLINE ECG COMPARED TO ECG 06/20/2022 01:58:42 NO SIGNIFICANT CHANGES Electronically Signed On 06-21-2022 14:04:08 CDT by Toribio Leal D.O.
--- NOTE | 2022-06-21 12:41 | WPDCARDPROC ---
Cardiac Cath Procedure Note Date of procedure:: 06/21/22 Performing physician:: John Arita MD Indication:: acute coronary syndrome Brief clinical history:: this is a 66-year-old man with hypertension and dyslipidemia presents to the hospital with intermittent ischemic type chest pain for 1-2 weeks. There has been a modest rise in his troponin prompting recommendation angiography. Procedure Procedure performed:: Left ventriculogram coronary angiography PTCA of the 1st diagonal Sedation/Medication given:: fentanyl 50 mg Versed 2 mg case start time 11:51 a.m. case end time 12:33 p.m. sedation provided by Cierra Gabriel RN, trained observer Access site:: right femoral artery Estimated blood loss:: 25 cc Procedure note:: patient was brought to the cardiac catheterization lab in the postabsorptive state where the right femoral triangle prepared in fashion. Anesthesia was provided with 1% infiltrated locally. Using modified Seldinger technique femoral artery 5 Samoan vascular sheath placed a Samoan angled to measure left-sided hemodynamics perform a left ventriculogram in our AO projection. Following this I used a standard 5 Samoan FL4 catheter to engage and inject the left artery in multiple projections and then 5 Samoan JR4 catheter to engage into the right artery. the cineangiograms were then reviewed and PCI of branch of the LAD was recommended. Prior to PCI the 5 Samoan sheath was exchanged 6 sheath the patient received 600 mg of clopidogrel and was anticoagulated for the procedure with bolus and infusion Angiomax. Following PTCA of the diagonal the sheath was sutured into position and was taken to the holding area for recovery and sheath removal with direct manual compression. Procedure was well tolerated and uncomplicated. Findings:: Hemodynamics: Central aortic pressure was 116 over 62 left ventricle 116 over to end-diastolic pressure is 10 systolic gradient on pullback across the aortic valve. Left ventricle: LV is of normal size there is slight anterior hypokinesia overall very good ejection fraction of 55%. The left main coronary artery is nicely patent left anterior descending is a moderate caliber artery extending down to the apex. There is mild atherosclerosis in the LAD the proximal segment but no more than about 20-30% stenosis is seen. The 1st diagonal branch of the LAD has a very severe 99% stenosis in the proximal segment followed by a more moderate 80% stenosis distal to that. The circumflex is a moderate-sized artery giving rise to the marginal branches the circumflex system Has a very mild proximal plaque of about 30-40%. Remainder of the circumflex is unremarkable. The right coronary artery was large caliber and dominant to the posterior circulation there are minimal luminal right coronary artery but no significant lesions are seen. Intervention: The left coronary artery was engaged using a 6 Samoan CLS 3.5 guiding catheter. I used a 0.014 BMW coronary guidewire to wire the diagonal branch without difficulty. I then pre-dilated the artery using a 2.5 x 20 mm Robert compliant balloon. Despite taking this up to 12 atmospheres the lesion was suboptimally dilated. The proximal 99% lesion was well pre-dilated but the stenosis of about 80% distal to that did not yield to this pressure. I then withdrew this balloon and performed high-pressure dilatation with noncompliant balloons 1st a 2.5 by 15 mm and then a 2.75 x 15 mm at 24 atmospheres. There was no change in appearance of 70-80% stenosis remains in the diagonal branch. Conclusion:: 1. Right coronary dominant circulation with single-vessel coronary disease with high-grade stenosis in the major diagonal branch of the LAD as described above 2. PTCA improving the appearance of this vessel with the resolution of the subtotal 99% proximal lesion but with persistence of the more distal 80% stenosis despite high-pres
--- NOTE | 2022-06-21 13:05 | PM.PNCARD ---
Progress Note: A&P Assessment and Plan (1) Chest pain: Code(s): R07.9 - Chest pain, unspecified Status: Acute Plan This is a 66-year-old man with single-vessel coronary disease high-grade stenosis in the major diagonal branch of the LAD. PTCA of this improved the appearance of the vessel but suboptimal angiographic result because of significant stenosis in the vessel that would not heal to high-pressure noncompliant balloon dilation. My plan was to observe the patient clinically, if he is stable discharge tomorrow and if he continues to be symptomatic consider more aggressive PCI either with atherectomy or laser at a tertiary care laboratory. The patient's does not find this plan acceptable she wishes him to be transferred from the inpatient status for completing the PCI. I will attempt to arrange transfer in this setting. For now he should continue on his current medical regimen clopidogrel has been added to his regimen he was given 600 mg loading dose of clopidogrel in the labor relations specialist. John Arita MD [facility] Subjective Date/time seen: Date of service: 06/21/22 13:05 Interval history: Follow-up visit in this 66-year-old man with: Acute coronary syndrome presenting over the weekend with intermittent chest pain for a couple of weeks. Cardiac catheterization today demonstrated very high-grade stenosis in the major diagonal branch of the LAD. PCI of this was only partially successful because of the significant stenosis in the diagonal remaining despite high-pressure balloon inflation at 24 atmospheres for this reason the appearance of the vessel is improved but certainly not a optimal angiographic result. There does remain UBALDO 3 flow in the vessel angiographically. He had no complications following this intervention. Exam Const: General: comfortable and no acute distress Other: Pleasant gentleman in the recovery area in the labor relations specialist no apparent distress HENMT: Mouth: Yes moist mucous membranes Eyes: Sclera: sclerae normal Neck: Neck: supple and no JVD Resp: Effort & Inspection: normal respiratory effort Cardio: Rate: regular rate Rhythm: regular rhythm GI: GI Palp: Yes Soft to palpation Auscultation: normal bowel sounds Skin: General skin exam: normal color Neuro: Other: Alert and oriented x3 Extrem: General: normal to inspection Objective Data Vital Signs Vital Signs: Vital Signs - 24 hr 06/20/22 14:00 06/20/22 16:00 06/20/22 16:00 Temperature Pulse Rate 71 53 L Respiratory Rate Blood Pressure Pulse Oximetry 95 Oxygen Delivery Room Air 06/20/22 16:00 06/20/22 18:23 06/20/22 18:00 Temperature 36.6 C Pulse Rate 54 L 71 68 Respiratory Rate 20 Blood Pressure 129/83 Pulse Oximetry 100 Oxygen Delivery 06/20/22 20:00 06/20/22 20:00 06/20/22 20:00 Temperature 36.6 C Pulse Rate 69 69 76 Respiratory Rate 20 20 Blood Pressure 135/70 Pulse Oximetry 97 97 Oxygen Delivery Room Air 06/20/22 22:00 06/20/22 23:22 06/21/22 00:00 Temperature 36.6 C Pulse Rate 56 L 53 L 53 L Respiratory Rate 20 20 Blood Pressure 118/70 Pulse Oximetry 99 99 Oxygen Delivery Room Air 06/21/22 00:00 06/21/22 01:16 06/21/22 03:57 Temperature 36.3 C L Pulse Rate 52 L 54 L 58 L Respiratory Rate 20 Blood Pressure 130/84 Pulse Oximetry 96 Oxygen Delivery 06/21/22 04:00 06/21/22 04:00 06/21/22 06:00 Temperature Pulse Rate 59 L 58 L 73 Respiratory Rate 20 Blood Pressure Pulse Oximetry 96 Oxygen Delivery Room Air 06/21/22 08:00 06/21/22 08:00 06/21/22 10:50 Temperature 37.0 C Pulse Rate 65 63 Respiratory Rate 16 15 Blood Pressure 149/87 H 123/82 Pulse Oximetry 97 98 Oxygen Delivery Room Air 06/21/22 08:00 06/21/22 10:00 06/21/22 12:00 Temperature Pulse Rate 67 68 Respiratory Rate Blood Pressure Pulse Oximetry Oxygen Delivery Room Air Intake/Output Intake/Output: Int
[2022-06-21] MEDS: SODIUM CHLORIDE 0.9% IV 1,000 ML 125 ML IV CONT (13:53)
--- NOTE | 2022-06-21 14:45 | SUR.PHASEII ---
1446- Sheath pulled using sterile technique. Manual pressure in place, stat seal place to site.
--- NOTE | 2022-06-21 15:14 | SUR.PHASEII ---
1515- Hemostasis achieved. Dressing applied. Pt instructed to keep head of bed on pillow and rt leg straight.
[2022-06-21 16:39] LABS: Glucose Point of Care 142 mg/dl (65-105)
[2022-06-21 17:14] LABS: Glucose Point of Care 173 mg/dl (65-105)
--- NOTE | 2022-06-21 17:50 | PM.IMPN ---
Progress Note: A&P Assessment and Plan (1) Chest pain: Code(s): R07.9 - Chest pain, unspecified Status: Acute Assessment and Plan: Heart catheterization performed today with inadequate PCI, transfer to tertiary care center pending (2) Gastro-esophageal reflux disease without esophagitis: Code(s): K21.9 - Gastro-esophageal reflux disease without esophagitis Status: Acute Assessment and Plan: Continue PPI Suspect indigestion contributing to some of patient's symptoms, will need EGD/colonoscopy at discharge (3) Essential (primary) hypertension: Code(s): I10 - Essential (primary) hypertension Status: Acute Assessment and Plan: Controlled (4) Mixed hyperlipidemia: Code(s): E78.2 - Mixed hyperlipidemia Status: Acute Assessment and Plan: Continue statin (5) Type 2 diabetes mellitus without complications: Qualifiers: Diabetes mellitus longterm insulin use: without longterm use Qualified Code(s): E11.9 - Type 2 diabetes mellitus without complications Code(s): E11.9 - Type 2 diabetes mellitus without complications Status: Acute Assessment and Plan: Hold metformin, A1c was 6.3 last month, Accu-Cheks and sliding scale insulin ordered Plan DVT prophylaxis with Lovenox GI prophylaxis not indicated Code status full code Subjective Date/time seen: 06/21/22 17:50 Interval history: Going for heart catheterization today. No overnight events noted. No chest pain or shortness of breath. No nausea, vomiting or diarrhea. No fevers or chills. Review of Systems Review of Systems: 12 point review of systems was assessed and was negative except as noted in the HPI Exam Narrative: General: No acute distress, alert and oriented per baseline HEENT: Atraumatic, normocephalic, mucous membranes moist CV: Regular rate and rhythm, S1, S2 Lungs: Clear to auscultation bilaterally, no rales or crackles noted, no wheezes, good air entry Abdomen: Soft, nontender, nondistended Extremities: Normal to inspection Skin: No rashes noted, no lesions or wounds seen Psych: Euthymic, normal affect Objective Data Vital Signs Vital Signs: Vital Signs - 24 hr 06/20/22 18:23 06/20/22 18:00 06/20/22 20:00 Temperature 97.8 F Pulse Rate 71 68 69 Pulse Rate [Right Pedal (Dorsalis Pedis) Palpation] Respiratory Rate 20 Blood Pressure 135/70 Pulse Oximetry 97 Oxygen Delivery 06/20/22 20:00 06/20/22 20:00 06/20/22 22:00 Temperature Pulse Rate 69 76 56 L Pulse Rate [Right Pedal (Dorsalis Pedis) Palpation] Respiratory Rate 20 Blood Pressure Pulse Oximetry 97 Oxygen Delivery Room Air 06/20/22 23:22 06/21/22 00:00 06/21/22 00:00 Temperature 97.9 F Pulse Rate 53 L 53 L 52 L Pulse Rate [Right Pedal (Dorsalis Pedis) Palpation] Respiratory Rate 20 20 Blood Pressure 118/70 Pulse Oximetry 99 99 Oxygen Delivery Room Air 06/21/22 01:16 06/21/22 03:57 06/21/22 04:00 Temperature 97.3 F L Pulse Rate 54 L 58 L 59 L Pulse Rate [Right Pedal (Dorsalis Pedis) Palpation] Respiratory Rate 20 Blood Pressure 130/84 Pulse Oximetry 96 Oxygen Delivery 06/21/22 04:00 06/21/22 06:00 06/21/22 08:00 Temperature 98.6 F Pulse Rate 58 L 73 65 Pulse Rate [Right Pedal (Dorsalis Pedis) Palpation] Respiratory Rate 20 16 Blood Pressure 149/87 H Pulse Oximetry 96 97 Oxygen Delivery Room Air 06/21/22 08:00 06/21/22 10:50 06/21/22 08:00 Temperature Pulse Rate 63 67 Pulse Rate [Right Pedal (Dorsalis Pedis) Palpation] Respiratory Rate 15 Blood Pressure 123/82 Pulse Oximetry 98 Oxygen Delivery Room Air 06/21/22 10:00 06/21/22 12:00 06/21/22 12:50 Temperature 97.5 F L Pulse Rate 68 63 Pulse Rate [Right Pedal (Dorsalis Pedis) Palpation] Respiratory Rate 16 Blood Pressure 143/94 H Pulse Oximetry 99 Oxygen Delivery Room Air Room Air 06/21
[2022-06-21 20:14] LABS: Glucose Point of Care 225 mg/dl (65-105)
--- NOTE | 2022-06-22 19:31 | PM.TDS ---
Transfer Discharge Sum: Prov Provider Date of admission: 06/19/22 07:27 Primary care physician: Rahul Walker MD Admitting clinician: Alta Bradford DO Consults: 06/19/22 Consult to Physician Routine Comment: Information left with exchange. Consulting Provider: John Arita group home manager/MD group to consult: Cardiology Reason for consultation: Chest pain, elevated troponin, multiple risk factors Has provider been notified: Yes 06/21/22 Consult to Physician Routine Comment: Consulting Provider: Tra Marin group home manager/MD group to consult: gastroenterology Reason for consultation: EGD/colon, severe heeartburn, never had colon Has provider been notified: Yes DS: Admitting Diagnosis Discharge Date 06/21/22 Admitting Diagnosis Chest pain DS: Discharge Diagnosis Discharge Diagnosis (1) Chest pain: Code(s): R07.9 - Chest pain, unspecified Status: Acute Assessment and Plan: Heart catheterization performed today with inadequate PCI, transfer to tertiary care center pending (2) Gastro-esophageal reflux disease without esophagitis: Code(s): K21.9 - Gastro-esophageal reflux disease without esophagitis Status: Acute Assessment and Plan: Continue PPI Suspect indigestion contributing to some of patient's symptoms, will need EGD/colonoscopy at discharge (3) Essential (primary) hypertension: Code(s): I10 - Essential (primary) hypertension Status: Acute Assessment and Plan: Controlled (4) Mixed hyperlipidemia: Code(s): E78.2 - Mixed hyperlipidemia Status: Acute Assessment and Plan: Continue statin (5) Type 2 diabetes mellitus without complications: Qualifiers: Diabetes mellitus termite technician insulin use: without alf use Qualified Code(s): E11.9 - Type 2 diabetes mellitus without complications Code(s): E11.9 - Type 2 diabetes mellitus without complications Status: Acute Assessment and Plan: Hold metformin, A1c was 6.3 last month, Accu-Cheks and sliding scale insulin ordered Plan DVT prophylaxis with Lovenox GI prophylaxis not indicated Code status full code Transfer Discharge Sum: Med Medications Active and Home Medications: Home Medications atorvastatin 40 mg tablet 40 mg PO DAILY 05/03/22 [History Confirmed 06/19/22] lisinopril 20 mg tablet 20 mg PO DAILY #90 tabs 05/03/22 [Rx Confirmed 06/18/22] metformin 1,000 mg tablet 1,000 mg PO BID 05/03/22 [History Confirmed 06/18/22] metoprolol succinate 100 mg tablet,extended release 24 hr 100 mg PO BID 05/03/22 [History Confirmed 06/18/22] omeprazole 20 mg tablet,delayed release 20 mg PO DAILY 05/03/22 [History Confirmed 06/18/22] Transfer Discharge Sum: Hosp Hospital Course Hospital course: 66-year-old male with past medical history of hypertension, hyperlipidemia, GERD and type 2 diabetes mellitus who presented to the ER with chest pain.? The patient reports that for the last several days he has been having intermittent substernal chest pain that is pressure-like in nature.? The pain is associated with belching.? The pain is improved after belching.? The pain was completely relieved in the ER after he received a GI cocktail.? He also received a full-dose aspirin on arrival to the ER.? He denies any nausea or vomiting.? He has been having some associated shortness of breath.? He has not had any cough or congestion.? 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 He reports that when the pain occurs it usually takes about 30 minutes for it to resolve.? He denies any orthopnea, lower extremity swelling or paroxysmal nocturnal dyspnea.? He has not had any cough or congestion.? He denies any fevers or chills.? He has not had any nausea or vomiting.? He denies any radiation of the chest pain.? Patient reported that when he began having symptoms tonight he checked his blood pressure in his blood pressure was e
== END 2022-06-21 23:29 | disposition short-term general hospital (02) | DRG 251 ==
LOC: ANHED 21:54 → ANHIMU 22:48
PROVIDERS: Specialist; Admitting Provider Internal Medicine; Emergency Provider Emergency Medicine; PCP Family Medicine Adolescent Medicine; Visit Provider Student in an Organized Health Care Education/Training Program
PROC: 4A023N7 Measurement of Cardiac Sampling and Pressure, Left Heart, Percutaneous Approach (ICD-10-PCS; CPT 93452; principal; 2022-06-21 11:45)
PROC: 02703ZZ Dilation of Coronary Artery, One Artery, Percutaneous Approach (ICD-10-PCS; CPT 92920; 2022-06-21 11:45)
DX: I24.9 Acute ischemic heart disease, unspecified (principal); I25.10 Atherosclerotic heart disease of native coronary artery without angina pectoris; K21.9 Gastro-esophageal reflux disease without esophagitis; I10 Essential (primary) hypertension; E78.2 Mixed hyperlipidemia; E11.9 Type 2 diabetes mellitus without complications; Z79.84 Long term (current) use of oral hypoglycemic drugs; I25.2 Old myocardial infarction; Z20.822 Contact with and (suspected) exposure to COVID-19
CPT/HCPCS: 36415; 71046; 80048; 80053; 82948; 83690; 84484; 85025; 85610; 85730; 92920; 93005; 93458; 96372; 99285; A9270; C1725; C1769; C1887; C1894; C9803; G0378; J0583; J1644; J1650; J1815; J2250; J3010; J7030; J7040; U0003; U0005

== ENCOUNTER 2022-08-06 14:25 | Emergency (ER) | payer MEDICARE, SELFPAY ==
[2022-08-06 14:32] VITALS: BP 152/92; PULSE 77; RESP 16; TEMP 36.7; O2SAT 98
[2022-08-06 14:45] VITALS: BP 152/92; PULSE 77; RESP 16; TEMP 36.7; O2SAT 98
--- NOTE | 2022-08-06 15:01 | ED.EAR ---
HPI - Ear Problem General Chief complaint: Ear Stated complaint: pain in right ear going down neck Time Seen by Provider: 08/06/22 14:48 Source: patient Mode of arrival: ambulatory Limitations: no limitations History of Present Illness HPI Narrative: patient presents today complaining of right ear pain chronically since January, but states that is now radiating down his right neck since this morning. Patient has ENT appointment in 4 days. He has been using Debrox drops, alcohol, flushing with peroxide. He was also swimming today. He is wondering if he has an infection in his ear canal. He currently rates his pain 10/12. Related Data Home Medications Medication Instructions Recorded Confirmed metoprolol succinate 100 mg 100 mg PO BID 05/03/22 06/29/22 tablet,extended release 24 hr omeprazole 20 mg tablet,delayed 20 mg PO DAILY 05/03/22 06/29/22 release aspirin 81 mg tablet,delayed 81 mg PO DAILY 06/29/22 07/13/22 release (Adult Aspirin Regimen) atorvastatin 80 mg tablet 80 mg PO DAILY 06/29/22 07/13/22 empagliflozin 10 mg tablet 10 mg PO DAILY 06/29/22 07/13/22 (Jardiance) metformin 1,000 mg tablet 1,000 mg PO DAILY 06/29/22 07/13/22 Allergies Allergy/AdvReac Type Severity Reaction Status Date / Time Sulfa (Sulfonamide Allergy Severe Hives Verified 08/06/22 14:32 Antibiotics) ibuprofen Allergy Unknown hives Verified 08/06/22 14:32 bacitracin [From Cortisporin] AdvReac Unknown Unknown Verified 08/06/22 14:32 hydrocodone AdvReac Unknown Unknown Verified 08/06/22 14:32 hydrocortisone AdvReac Unknown Unknown Verified 08/06/22 14:32 [From Cortisporin] neomycin [From Cortisporin] AdvReac Unknown Unknown Verified 08/06/22 14:32 polymyxin B AdvReac Unknown Unknown Verified 08/06/22 14:32 [From Cortisporin] Review of Systems Review of Systems: CONSTITUTIONAL: Denies body aches, fever, chills, or sweats. EYES: Denies visual changes, redness, or discharge. ENT: Denies rhinorrhea, congestion, sore throat. + Right ear pain CARDIOVASCULAR: Denies chest pain, palpitations, or edema. RESPIRATORY: Denies cough or dyspnea. GASTROINTESTINAL: Denies abdominal pain, nausea, vomiting, or diarrhea. GENITOURINARY: Denies dysuria or hematuria. SKIN: Denies rash, itching, or wounds. MUSCULOSKELETAL: Denies back pain, joint pain, or myalgia. NEUROLOGIC: Denies headache, numbness, tingling, or weakness. PSYCH: Denies depression or anxiety. [facility] Past Medical History Medical History Essential hypertension Gastro-esophageal reflux disease without esophagitis Mixed hyperlipidemia Surgical History Surgical History History of tonsillectomy and adenoidectomy Family History Family History Father Acute myocardial infarction, Onset Age: 79 Heart disease Hypertension Mother Acute myocardial infarction, Onset Age: 66 Diabetes mellitus Heart disease Hypertension Grandparent Acute myocardial infarction Heart disease Hypertension Grandparent Acute myocardial infarction Heart disease Sibling Asthma Diabetes mellitus Sibling Diabetes mellitus Social History Social History Social History: He has been for 33 years. He has 1 biological child and 3 stepchildren. He is a lifelong nonsmoker and drinks a glass a wine about 3 times a week. He denies any illicit substance use. He is a retired senior construction project manager. Code status: Full code Surrogate decision maker: Smoking status: Never smoker Second hand tobacco smoke exposure: No Alcohol intake: current Drinks per week: 3 Alcohol use details: Occasionally Substance use: never Substance use type: does not use Gender identity (if verbalized by the patient): Male Sexual O
== END 2022-08-06 15:16 | disposition home or self-care (01) ==
PROVIDERS: Emergency Provider Nurse Practitioner; PCP Family Medicine Adolescent Medicine
DX: H61.21 Impacted cerumen, right ear (principal); I10 Essential (primary) hypertension; K21.9 Gastro-esophageal reflux disease without esophagitis; E78.2 Mixed hyperlipidemia; Z79.82 Long term (current) use of aspirin
CPT/HCPCS: 99211; G0463

== ENCOUNTER 2022-09-30 07:15 | Outpatient (RCR) | payer MEDICARE, SELFPAY | END 2022-09-30 15:42 | disposition home or self-care (01) | LOC: ANHCPREHAB 07:15 | PROVIDERS: PCP Family Medicine Adolescent Medicine; Visit Provider Internal Medicine Interventional Cardiology | DX: Z95.5 Presence of coronary angioplasty implant and graft (principal) | CPT/HCPCS: 93798 ==

== ENCOUNTER 2023-03-17 07:50 | Outpatient (CLI) | payer MEDICARE, SELFPAY | END 2023-03-17 07:51 | disposition home or self-care (01) | LOC: ANHAUDIO 07:52 | PROVIDERS: PCP Family Medicine Adolescent Medicine; Visit Provider Otolaryngology | DX: H91.93 Unspecified hearing loss, bilateral (principal) | CPT/HCPCS: 92557; 92567 ==